=== PATIENT | male | born 1980 | race African-American/Black ===

== ENCOUNTER 2019-06-23 09:58 | Emergency (ER) | payer SELFPAY ==
[2019-06-23 10:08] VITALS: BP 132/92; PULSE 83; TEMP 98.7; BMI 29.0
[2019-06-23] MEDS ORDERED: IBUPROFEN 400 MG TABLET (FP) PO ONE ×2 (10:21→10:27)
--- NOTE | 2019-06-23 10:43 | PDOC ---
History of Present Illness - General Chief Complaint: Pain, Acute Stated Complaint: RT SHOULDER PAIN Time Seen by Provider: 06/23/19 10:10 History Source: Patient - History of Present Illness Occurred: reports: other Upper Extremity Pain Location: right: shoulder Past History - Past Medical History Allergies/Adverse Reactions: Allergies Allergy/AdvReac Type Severity Reaction Status Date / Time No Known Allergies Allergy Verified 06/23/19 10:05 COPD: No - Suicide/Smoking/Psychosocial Hx Smoking History: Never smoked Hx Alcohol Use: Yes (OCCASIONALLY) Drug/Substance Use Hx: No Review of Systems - Review of Systems Musculoskeletal: Yes: Joint Pain. No: Joint Swelling Neurological: No: Numbness, Tingling, Weakness *Physical Exam - Vital Signs Last Vital Signs Temp Pulse Resp BP Pulse Ox 98.7 F 83 16 132/92 98 06/23/19 10:05 06/23/19 10:05 06/23/19 10:05 06/23/19 10:05 06/23/19 10:05 - Physical Exam General Appearance: Yes: Appropriately Dressed. No: Apparent Distress HEENT: positive: Normal Voice Neck: positive: Supple Respiratory/Chest: negative: Respiratory Distress Extremity: positive: Normal Inspection, Normal Range of Motion. negative: Tender, Swelling Integumentary: positive: Dry, Warm Neurologic: positive: Fully Oriented, Alert, Normal Mood/Affect Medical Decision Making - Medical Decision Making 06/23/19 10:43 38-year-old male, no significant history, here with right shoulder pain x several days. 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 No neck pain, upper ext weakness or sensory changes. Has not taken anything for pain See exam M/l MSK shoulder pain -dc w/ pain control and pmd f/u if pain persists *DC/Admit/Observation/Transfer Diagnosis at time of Disposition: Shoulder pain Qualifiers: Chronicity: acute Laterality: right Qualified Code(s): M25.511 - Pain in right shoulder - Discharge Dispostion Disposition: HOME Condition at time of disposition: Good - Referrals - Patient Instructions Printed Discharge Instructions: Shoulder Sprain Additional Instructions: Take motrin or tylenol for pain as needed for pain If pain persists, please follow-up with your PMD - Post Discharge Activity Forms/Work/School Notes: Back to Work
== END 2019-06-23 11:15 | disposition home or self-care (01) ==
LOC: JERFT 09:58
CPT/HCPCS: 99282-25

== ENCOUNTER 2023-12-24 20:32 | Emergency (ER) | payer OTHER ==
[2023-12-24 20:38] VITALS: BP 166/94; PULSE 100; RESP 18; TEMP 98; BMI 31.4
[2023-12-24] MEDS ORDERED: ACETAMINOPHEN 500 MG TABLET (FP) ONE (21:01)
[2023-12-24] MEDS ORDERED: IBUPROFEN 600 MG TABLET (FP) PO ONE (21:01)
[2023-12-24] MEDS: IBUPROFEN 600 MG TABLET (FP) PO ONE (21:03)
[2023-12-24] MEDS: ACETAMINOPHEN 500 MG TABLET (FP) PO ONE (21:04)
== END 2023-12-24 21:15 | disposition home or self-care (01) ==
LOC: JERFT 20:32
DX: M79.672 Pain in left foot (principal); S99.912A Unspecified injury of left ankle, initial encounter; V03.10XA Pedestrian on foot injured in collision with car, pick-up truck or van in traffic accident, initial encounter; Y92.410 Unspecified street and highway as the place of occurrence of the external cause
CPT/HCPCS: 73610-TC-LT-FY; 73630-TC-LT; 99283-25